=== PATIENT | male | born 1960 | race Caucasian/White ===

== ENCOUNTER 2017-11-09 08:34 | Emergency (ER) | payer MEDICARE ==
[2017-11-09 09:13] LABS: BASOPHILS 0.3 % (0-2); EOSINOPHILS 0.9 % (0-7); HEMATOCRIT 43.5 % (42.0-54.0); HEMOGLOBIN 15.1 g/dL (13.5-17.5); IMMATURE GRANULOCYTES 0.1 % (0-5); LYMPHOCYTES 18.5 % (15-50); MCH 32.3 pg (26.0-34.0); MCHC 34.7 g/dL (31.0-37.0); MCV 92.9 fL (80.0-100.0); MEAN PLATELET VOLUME 11.2 fL (7.4-10.4); MONOCYTES 7.4 % (2-11); NEUTROPHILS 72.8 % (40-80); PLATELET COUNT 192 10x3/uL (130-400); RBC 4.68 10x6/uL (4.20-6.10); RDW 11.9 % (11.5-14.5); WBC 8.7 10x3/uL (4.8-10.8)
[2017-11-09 09:26] LABS: APPEARANCE CLEAR (CLEAR); COLOR YELLOW (YELLOW)
[2017-11-09 09:27] LABS: ALBUMIN 3.8 g/dL (3.4-5.0); ANION GAP 8.9 mmol/L (8-16); BILIRUBIN - TOTAL 0.9 mg/dL (0.2-1.3); CALCIUM 8.8 mg/dL (8.5-10.1); CARBON DIOXIDE 29.3 mmol/L (21.0-32.0); CREATININE - SERUM 1.6 mg/dL (0.6-1.3); POTASSIUM - SERUM 4.2 mmol/L (3.5-5.1); PROTEIN - SERUM 7.3 g/dL (6.4-8.2)
[2017-11-09 09:27] LABS: BILIRUBIN NEGATIVE (NEGATIVE); GLUCOSE NEGATIVE (NEGATIVE); KETONE NEGATIVE (NEGATIVE); NITRITE NEGATIVE (NEGATIVE); PROTEIN NEGATIVE (NEGATIVE); UROBILINOGEN NORMAL (NORMAL)
[2017-11-09 09:28] LABS: BACTERIA FEW /hpf (NONE SEEN); CALCIUM OXALATE CRYSTALS 0-5 /hpf (NONE SEEN); EPITHELIAL CELLS 0-5 /hpf (0-5); MUCUS <1+ /lpf (NONE SEEN); WHITE CELLS - URINE 0-5 /hpf (0-5)
[2017-11-12] MEDS ORDERED: DILAUDID4 MG PO (15:32)
[2017-11-12] MEDS ORDERED: FLOMAX0.4 MG PO (15:33)
[2017-11-12] MEDS ORDERED: CIPRO250 MG PO (15:33)
[2017-11-14 09:31] VITALS: BMI 22.9
== END 2017-11-09 10:43 | disposition home or self-care (01) ==
LOC: D.ER 08:34 → EDBD 08:34 → D.ER 10:43
PROVIDERS: Emergency Medicine
DX: N23 Unspecified renal colic (principal); R82.71 Bacteriuria

== ENCOUNTER 2017-11-14 09:00 | Outpatient (CLI) | payer MEDICARE ==
[~2017-11-14] VITALS: Ht 175.3 cm; Wt 70.3 kg
[~2017-11-14 09:00] MED LIST: CIPRO250 MG PO; DILAUDID4 MG PO; FLOMAX0.4 MG PO
[2017-11-14 09:31] VITALS: BP 133/75; Ht 175.3 cm; Wt 70.3 kg
== END 2017-11-14 14:13 | disposition home or self-care (01) ==
LOC: D.OPS 09:00 → D.PAN 09:45 → D.OPS 09:45 → EDSTATUS 09:45 → D.OPS 11:00
DX: N20.1 Calculus of ureter (principal); Z01.810 Encounter for preprocedural cardiovascular examination; Z01.811 Encounter for preprocedural respiratory examination; Z01.812 Encounter for preprocedural laboratory examination; Z53.9 Procedure and treatment not carried out, unspecified reason